=== PATIENT | male | born 1995 | race Caucasian/White ===

== ENCOUNTER 2018-03-06 16:36 | Emergency (ER) | payer BC, OTHER ==
[2018-03-06 18:15] VITALS: BP 124/65
--- NOTE | 2018-03-06 18:29 | UC ---
Complaint Male HPI - HPI Summary HPI Summary: Patient here today with a swollen left testicle. Swelling is been going on for about 2 weeks. Patient also endorses pain and burning with urination as well as occasional blood in his urine. Patient reports that his girlfriend Leonk she was treated. He does admit to multiple sex partners. Patient patient is not a reliable historian and did not attempting to be engaged in conversations about his health. Patient does deny fever and flank pain - History of Current Complaint Chief Complaint: [facility] Stated Complaint: PERSONAL Time Seen by Provider: 03/06/18 18:50 Hx Obtained From: Patient Onset/Duration: Gradual Onset, Lasting Weeks - 2, Still Present Timing: Constant Severity Initially: Moderate Severity Currently: Moderate Pain Intensity: 5 Pain Scale Used: 0-10 Numeric Location: Testicle Character: Burning Aggravating Factor(s): Voiding - Allergies/Home Medications Allergies/Adverse Reactions: Allergies Allergy/AdvReac Type Severity Reaction Status Date / Time No Known Allergies Allergy Verified 03/06/18 18:15 PMH/Surg Hx/FS Hx/Imm Hx Previously Healthy: Yes - Surgical History Surgical History: None - Family History Known Family History: Positive: None - Social History Occupation: Disabled Lives: With Family Alcohol Use: None Substance Use Type: None Smoking Status (MU): Heavy Every Day Tobacco Smoker Have You Smoked in the Last Year: Yes Cessation Counseling: Counseled 3+Min - 10 Min Review of Systems Constitutional: Negative Skin: Negative Eyes: Negative ENT: Negative Respiratory: Negative Cardiovascular: Negative Gastrointestinal: Negative Genitourinary: Dysuria, Hematuria, Urgency, Vaginal/Penile Burning, Other - Left testicle tender and swollen Motor: Negative Neurovascular: Negative Musculoskeletal: Negative Neurological: Negative Psychological: Negative Is Patient Immunocompromised?: No All Other Systems Reviewed And Are Negative: Yes Physical Exam Triage Information Reviewed: Yes Appearance: No Pain Distress, Ill-Appearing - Appears older than stated age. Chronic poor health, Thin Vital Signs: Initial Vital Signs Temp 98.7 F 03/06/18 18:03 Pulse 86 03/06/18 18:03 Resp 14 03/06/18 18:03 BP 124/65 03/06/18 18:03 Pulse Ox 100 03/06/18 18:03 Vital Signs Reviewed: Yes Eye Exam: Normal Eyes: Positive: Conjunctiva Clear ENT Exam: Normal ENT: Positive: Normal ENT inspection, Hearing grossly normal. Negative: Trismus , Hoarse voice, Dental tenderness Dental Exam: Other - Dental caries poor hygiene Neck exam: Normal Neck: Positive: Supple, Nontender Respiratory Exam: Normal Respiratory: Positive: Chest non-tender, No respiratory distress, No accessory muscle use Cardiovascular Exam: Normal Cardiovascular: Positive: RRR, Pulses Normal, Brisk Capillary Refill Abdominal Exam: Normal Abdomen Description: Positive: Nontender, No Organomegaly, Soft. Negative: CVA Tenderness (R), CVA Tenderness (L), Distended, Guarding, McBurney's Point Tenderness Bowel Sounds: Positive: Present Male Genital Exam: Positive: Scrotum Tenderness (L), Testicular Tenderness (L), Urethral Discharge, Other - No groin lymph nodes, uncircumcised male poor hygiene. Negative: Inguinal Tenderness Musculoskeletal Exam: Normal Musculoskeletal: Positive: Strength Intact, ROM Intact, No Edema Neurological Exam: Normal Neurological: Positive: Alert, Muscle Tone Normal. Negative: Fatigued - Was Psychological Exam: Normal Psychological: Positive: Other: - Patient makes poor eye contact patient is not engaged with his partner that is in the room with him patient does appear angry Skin Exam: Normal Diagnostics - Laboratory Diagnostic Studies Completed/Ordered: Urine +3 leuks +1 blood specific gravity less than 1.005 Complaint Male Course/Dx - Course Course Of Treatment: We'll treat patient with Flagyl and Rocephin azithromycin and Zofran. Patient understands had no sexual contact for the next 2 weeks until he is retested. Patient was also referred to follow-up the next day with urology referrals to both the [facility] and [place] [facility] offices have been made by the patient's convenience - Differential Dx/Diagnosis Provider Diagnoses: Dysuria- left orchiditis, nicotine dependent Discharge - Sign-Out/Discharge Documenting (check all that apply): Discharge - Discharge Plan Condition: Stable Disposition: HOME Patient Education Materials: Testicular Self-examination (ED), Testicle Pain ( ED), Scrotal Pain (ED) Referrals: [facility]FERR[facility] [Outside] - 03/07/18 Kerry Govea MD [Medical Doctor] - 1 Day Girish Perry MD [Medical Doctor] - 1 Day Additional Instructions: If you are unable to secure follow-up appointment for Saturday, March 07, 2018 please return to the urgent care the emergency department for reassessment and evaluation a few testicular pain and swelling - Billing Disposition and Condition Condition: STABLE Disposition: HOME
[2018-03-06] MEDS ORDERED: Ondansetron ODT TAB* 4 MG PO ONE (19:31)
[2018-03-06] MEDS ORDERED: Azithromycin TAB* 250 MG PO ONE (19:31)
[2018-03-06] MEDS ORDERED: metroNIDAZOLE TAB* 250 MG PO ONE (19:32)
[2018-03-06] MEDS ORDERED: Lidocaine 1% MPF* 2 ML VIAL INJ ONE (19:33)
[2018-03-06] MEDS ORDERED: cefTRIAXone VIAL(*) 250 MG VIAL IM ONE (19:33)
== END 2018-03-06 19:55 | disposition home or self-care (01) ==
LOC: UCCORT 16:36
DX: R30.0 Dysuria (principal); N45.2 Orchitis; F17.200 Nicotine dependence, unspecified, uncomplicated
CPT/HCPCS: 81003; 87086; 87491; 87591; 87661; 96372; 99202; A9270-GY; G0463; J0696